=== PATIENT | female | born 1990 | race Caucasian/White ===

== ENCOUNTER 2019-09-24 11:59 | Emergency (ER) | payer OTHER ==
[~2019-09-24] VITALS: Ht 165.1 cm; Wt 86.2 kg
[2019-09-24 12:32] VITALS: Ht 165.1 cm; Wt 86.2 kg
[2019-09-24 14:45] LABS: BASOPHIL % 0.2 % (0-2); PLATELET COUNT 215 x10^3mcL (130-400); RED CELL DISTRIBUTION WIDTH 14.6 % (11.5-14.5)
[2019-09-24 14:50] LABS: CALCIUM 8.2 mg/dL (8.5-10.1); CARBON DIOXIDE 26.4 mmol/L (21-32); CHLORIDE SERUM 101 mmol/L (98-107); CREATININE SERUM 0.7 mg/dL (0.6-1.0); GFR1 > 60 mL/min; GLUCOSE SERUM 102 mg/dL (74-106); POTASSIUM SERUM 3.7 mmol/L (3.5-5.1); SODIUM SERUM 136 mmol/L (136-145)
[2019-09-24 14:56] LABS: ALBUMIN 3.8 g/dL (3.4-5.0); ALKALINE PHOSPHATASE 126 U/L (46-116); ALT/SGPT 472 U/L (14-59); AMYLASE 42 U/L (25-115); AST/SGOT 373 U/L (15-37); BILIRUBIN TOTAL 0.65 mg/dL (0.20-1.00); LIPASE 85 IU/L (73-393); TOTAL PROTEIN, SERUM 7.7 g/dL (6.4-8.2)
[2019-09-24 15:42] VITALS: BP 110/83
== END 2019-09-24 15:42 | disposition home or self-care (01) ==
LOC: ED 11:59
PROVIDERS: Emergency Medicine
DX: B34.9 Viral infection, unspecified (principal); M54.9 Dorsalgia, unspecified; Z20.828 Contact with and (suspected) exposure to other viral communicable diseases
CPT/HCPCS: J1885; J2405; U0003-CS